=== PATIENT | female | born 1965 | race Caucasian/White ===

== ENCOUNTER 2021-03-27 07:36 | Day surgery (SDC) | payer BC ==
[~2021-03-27 07:36] MED LIST: Midazolam 1 MG/ML 2 ML SDV ONE; Propofol 200 MG/20 ML SDV ONE; fentaNYL 100 MCG/2 ML SDV ONE
[2021-03-27] MEDS ORDERED: Dextrose 5%-Lactated Ringers 1,000 ML IV SCH (08:15)
[2021-03-27] MEDS ORDERED: Glycopyrrolate 0.2 MG/ML 2 ML SDV IVPUSH ONE (09:00)
--- NOTE | 2021-04-13 11:16 | OR ---
DATE OF PROCEDURE: 03/27/2021 SURGEON: Constantine Thornton MD PREOPERATIVE DIAGNOSIS: Persistent gastroesophageal reflux disease. POSTOPERATIVE DIAGNOSES: 1. Moderate hiatal hernia with wide-open esophagogastric junction and actively ulcerated esophagitis. 2. Multiple fundic gland polyps. OPERATIVE PROCEDURES: Esophagogastroduodenoscopy with: 1. Biopsy of esophagogastric junction (19452). 2. Fundic gland polypectomy by snare technique (64948). 3. Biopsies of antrum for CLOtest. ANESTHESIA: IV sedation. INDICATIONS FOR PROCEDURE: This is a 56-year-old presenting with worsening symptoms suggestive of gastroesophageal reflux disease. Plan is to proceed with an upper GI endoscopy with biopsies as indicated. Potential risks including bleeding and perforation were discussed, and the patient wishes to proceed. DETAILS OF PROCEDURE: The patient was taken to the operating room and placed in a left lateral decubitus position. IV sedation was administered, after which the upper GI endoscope was passed orally through the length of esophagus into the stomach with retroflexion view of the fundus, and thereafter through the pyloric channel to the junction of the third and fourth portions of the duodenum. Findings included some mild redness and erythema of the hypopharynx and larynx. Upper esophageal sphincter and esophageal body were unremarkable. The patient did have a moderate roughly 3 cm to 4 cm hiatal hernia with completely wide open esophagogastric junction. There was actively ulcerated esophagitis extending upward from the EG junction. The central area of the ulcer was covered with fibrinous exudate. No blood or bleeding was seen. There was no stricturing, plaquing, or gross evidence of neoplasia. The patient was noted to have multiple fundic gland polyps, none of which appeared to be particularly worrisome in appearance. Remainder of the antrum and duodenal exams were unremarkable. At this point, biopsies were obtained from the antrum and sent for CLOtest for H pylori. A single gland polypectomy was then accomplished by means of a snare technique, and following this, multiple biopsies were obtained from esophagogastric junction and sent for histologic evaluation. Minimal bleeding from the biopsy and polypectomy sites were seen, and the procedure then concluded. The patient was taken to the recovery room in satisfactory condition. Constantine Thornton MD /[id number]
== END 2021-03-27 12:10 | disposition home or self-care (01) ==
LOC: JP.SDS 07:36
PROVIDERS: ATTEND Surgery
DX: K31.7 Polyp of stomach and duodenum (principal); K22.8 Other specified diseases of esophagus; K21.00 Gastro-esophageal reflux disease with esophagitis, without bleeding; K44.9 Diaphragmatic hernia without obstruction or gangrene; K22.10 Ulcer of esophagus without bleeding; E66.9 Obesity, unspecified; Z68.27 Body mass index [BMI] 27.0-27.9, adult
CPT/HCPCS: 87081; 88305; J2250; J2704; J3010; J3490; J7121

== ENCOUNTER 2021-06-02 05:34 | Inpatient (IN) | payer BC ==
[2021-06-02] MEDS: Acetaminophen 500 MG Tab PO ONE ×2 (06:03→10:11)
[2021-06-02] MEDS ORDERED: Ondansetron 4 MG/2 ML SDV ONE (07:05)
[2021-06-02] MEDS ORDERED: Dexamethasone 4 MG/ML SDV ONE (07:05)
[2021-06-02] MEDS ORDERED: fentaNYL 250 MCG/5 ML SDV ONE (07:05)
[2021-06-02] MEDS ORDERED: Glycopyrrolate 0.2 MG/ML 5 ML MDV ONE (07:05)
[2021-06-02] MEDS ORDERED: Rocuronium 50 MG/5 ML Vial ONE (07:05)
[2021-06-02] MEDS ORDERED: Succinylcholine 200 MG/10 ML MDV ONE (07:05)
[2021-06-02] MEDS ORDERED: Neostigmine Methylsulfate 1 MG/ML 5 ML Syringe ONE (07:05)
[2021-06-02] MEDS ORDERED: Propofol 200 MG/20 ML SDV ONE (07:05)
[2021-06-02] MEDS ORDERED: Ketamine 500 MG/5 ML MDV IV SCH (07:15)
[2021-06-02] MEDS ORDERED: Ketamine 50 MG in Sodium Chloride 0.9% 49.5 ML IV SCH (07:15)
[2021-06-02] MEDS ORDERED: Ropivacaine 34 ML, dexAMETHasone 8 MG, EPINEPHrine 0.4 MG, Sodium Chloride 0.9% 43.6 ML NERVRT SCH ×4 (07:15)
[2021-06-02] MEDS ORDERED: Dextrose 5%-Lactated Ringers 1,000 ML IV SCH ×2 (07:45→10:15)
[2021-06-02] MEDS ORDERED: ceFAZolin 2 GM in Premix Bag 1 BAG IV ONE (07:45)
[2021-06-02] MEDS ORDERED: Sodium Chloride 0.9% 10 ML ONE (07:47)
[2021-06-02] MEDS ORDERED: ePHEDrine 50 MG/ML SDV ONE (07:47)
[2021-06-02] MEDS ORDERED: Lactated Ringers 1,000 ML ONE (08:08)
[2021-06-02] MEDS ORDERED: fentaNYL 100 MCG/2 ML SDV ONE (08:51)
[2021-06-02] MEDS ORDERED: Cyclobenzaprine 10 MG Tab PO PRN (10:10)
[2021-06-02] MEDS: Pantoprazole 40 MG Vial IVPUSH SCH (10:46)
[2021-06-02] MEDS ORDERED: diphenhydrAMINE 50 MG/ML SDV IVPUSH PRN (11:00)
[2021-06-02] MEDS ORDERED: Acetaminophen 500 MG Tab PO PRN (11:00)
[2021-06-02] MEDS ORDERED: hydrOXYzine HCL 100 MG/2 ML SDV IM PRN (11:00)
[2021-06-02] MEDS ORDERED: HYDROmorphone 1 MG/ML Syringe IV PRN (11:00)
[2021-06-02] MEDS ORDERED: Metoclopramide 10 MG/2 ML SDV IVPUSH PRN (11:00)
[2021-06-02] MEDS ORDERED: Labetalol 20 MG/4 ML Syringe IVPUSH PRN (11:00)
[2021-06-02] MEDS ORDERED: HYDROmorphone 0.5 MG/0.5 ML Syringe IVPUSH PRN (11:00)
[2021-06-02] MEDS ORDERED: Ondansetron 4 MG/2 ML SDV IVPUSH PRN (11:00)
[2021-06-02] MEDS ORDERED: oxyCODONE 5 MG Tab PO PRN (11:00)
[2021-06-02] MEDS: ceFAZolin 2 GM in Premix Bag 1 BAG IV SCH ×2 (13:24→21:26)
[2021-06-02] MEDS: Acetaminophen 500 MG Tab PO SCH ×2 (13:24→21:26)
[2021-06-02] MEDS: MVI, Adult with Vitamin K 10 ML, Thiamine 200 MG, Zinc/Copper/Manganese/Selenium 1 ML i... IV SCH ×4 (17:45)
[2021-06-02] MEDS: traMADol 50 MG Tab PO PRN (17:45)
[2021-06-02] MEDS: Fluticasone Propionate Nasal Spray 16 GM Bottle NASBOTH SCH (22:06)
[2021-06-02] MEDS: DULoxetine 20 MG Cap PO SCH (22:06)
[2021-06-03] MEDS ORDERED: Iopamidol 612 MG/ML 50 ML SDV PO ONE (03:06)
[2021-06-03] MEDS ORDERED: methylPREDNISolone Sodium Succinate 40 MG/1 ML SDV IVPUSH ONE (03:30)
[2021-06-03] MEDS: ceFAZolin 2 GM in Premix Bag 1 BAG IV SCH ×3 (05:03→21:18)
[2021-06-03] MEDS: Acetaminophen 500 MG Tab PO SCH ×3 (06:44→21:19)
[2021-06-03] MEDS ORDERED: HYDROmorphone 2 MG Tab PO PRN (07:03)
--- NOTE | 2021-06-03 08:04 | PN ---
DATE OF SERVICE: 06/03/2021 SUBJECTIVE: Kristie is postop day 1 from having a laparoscopic Jese fundoplication. She has had 560 in, 5500 out. Vital signs have been stable, and pain has been well managed. She is up ambulating and has no questions or concerns. REVIEW OF SYSTEMS: Remainder of the review of systems negative for any pertinent positives or negatives. OBJECTIVE: GENERAL: Kristie is a pleasant 56-year-old female. VITAL SIGNS: TPR is 95.9, 63, 16. Blood pressure 103/62. HEENT: Negative. NECK: Supple. HEART: Regular rate and rhythm. LUNGS: Clear. ABDOMEN: Dressings dry and intact. Abdominal binder is on. EXTREMITIES: Without peripheral edema. ASSESSMENT: Laparoscopic repair of paraesophageal diaphragmatic hernia with Jese fundoplication and repair of posterior perforation, distal esophagus. POSTOPERATIVE DIAGNOSES: 1. Large paraesophageal hernia with gastroesophageal reflux disease, refractory to medical management. 2. Contained perforation, distal esophagus. Date of procedure, 06/02/2021. Surgeon: Constantine Thornton MD. PLAN: 1. Clear liquid diet for 5 days. 2. Ensure Clear q.i.d. 3. IV decreased to 100 mL per hour. 4. May shower. 5. Dilaudid 2 mg q.4 hours p.r.n. pain. 6. Continue use of incentive spirometer and ambulation. 7. We will evaluate p.r.n. or in a.m. Adriana Gutierrez PA-C /[id number]
[2021-06-03] MEDS ORDERED: Fluticasone Propionate Nasal Spray 16 GM Bottle NASBOTH SCH (09:00)
[2021-06-03] MEDS ORDERED: DULoxetine 20 MG Cap PO SCH (09:00)
[2021-06-03] MEDS: Cetirizine 10 MG Tab PO SCH (09:16)
[2021-06-03] MEDS: Dextrose 5%-Lactated Ringers 1,000 ML IV SCH (09:17)
--- NOTE | 2021-06-03 09:19 | CR ---
[facility] HISTORY: Postbariatric surgery FINDINGS: Patient swallowed water-soluble contrast. Upright views of the abdomen show no evidence of extravasation or obstruction. IMPRESSION: Status post bariatric surgery No extravasation or obstruction seen
[2021-06-03] MEDS: Pantoprazole 40 MG Vial IVPUSH SCH (11:13)
[2021-06-03] MEDS: traMADol 50 MG Tab PO PRN (15:09)
[2021-06-03] MEDS: MVI, Adult with Vitamin K 10 ML, Thiamine 200 MG, Zinc/Copper/Manganese/Selenium 1 ML i... IV SCH ×4 (16:45)
[2021-06-03] MEDS: Fluticasone Propionate Nasal Spray 16 GM Bottle NASBOTH SCH (21:19)
[2021-06-03] MEDS: DULoxetine 20 MG Cap PO SCH (21:19)
[2021-06-04] MEDS: Dextrose 5%-Lactated Ringers 1,000 ML IV SCH (03:07)
[2021-06-04] MEDS ORDERED: Magnesium Hydroxide 400 MG/5 ML Susp 30 ML Cup PO PRN (07:14)
[2021-06-04] MEDS: Acetaminophen 500 MG Tab PO SCH (08:41)
[2021-06-04] MEDS: Cetirizine 10 MG Tab PO SCH (08:43)
[2021-06-04] MEDS ORDERED: Cyanocobalamin (Vitamin B12) 1,000 MCG/ML SDV IM ONE (09:00)
--- NOTE | 2021-06-06 01:36 | DISCH ---
ADMISSION DIAGNOSES: 1. Large paraesophageal diaphragmatic hernia. 2. Gastroesophageal reflux disease refractory to medical management. DISCHARGE DIAGNOSES: Laparoscopic repair of paraesophageal diaphragmatic hernia with Jese fundoplication and repair of posterior perforation of distal esophagus. POSTOPERATIVE DIAGNOSES: 1. Large paraesophageal hernia with gastroesophageal reflux disease refractory to medical management. 2. Contained perforation in distal esophagus. 3. Date of procedure: 06/02/2021. Surgeon: Constantine Thornton MD. HISTORY: Kristie is a pleasant 56-year-old female with gastroesophageal reflux disease refractory to medical management. After preoperative evaluation and discussion of possible risks and possible complications, she wished to proceed with surgical procedure. HOSPITAL COURSE: Kristie had her surgery on 06/02/2021. She had no operative complications. On postoperative day #1, she was started on clear liquid diet and given Ensure Clear protein supplement drinks 4 times a day. IV was decreased to 100 mL per hour. She continued use of incentive spirometer and ambulation. She was prescribed Dilaudid 2 mg q.4 hours p.r.n. pain. On postoperative day #2, activity was good. Oral intake adequate. She received dietary instructions and will be able to be discharged to home without any complications. PHYSICAL EXAMINATION: GENERAL: Kristie is a pleasant 56-year-old female. VITAL SIGNS: Height is 5 feet 4 inches, weight is 149 pounds. TPR is 96.8, 73, 16, blood pressure is 128/82. HEENT: Negative. NECK: Supple. HEART: Regular rate and rhythm. LUNGS: Clear. ABDOMEN: Dressings are on. Abdominal binder is on. EXTREMITIES: Without peripheral edema. DISPOSITION: Discharged to home. CONDITION: Stable and improving. FOLLOWUP APPOINTMENT: With Constantine Thornton MD, on 06/11/2021 at 8 a.m. MEDICATIONS: She is to resume home medication as she took prior to admission. Two doses of milk of mag were sent home with the patient because she has not had a bowel movement yet. May take Aller-Beto 1 spray nasal daily, duloxetine 40 mg daily, cetirizine/Zyrtec 10 mg p.o. daily, and Tylenol Extra Strength 1000 mg p.o. q.8 hours for pain. Hold vitamins until after first postop appointment. DIET: Clear liquid diet for 5 days, then full liquid diet for 9 days. ACTIVITY: No lifting greater than 10 pounds for 2 weeks. OTHER ACTIVITY: Walk 6 times daily inside your home. Driving: Do not drive for 1 week. Shower/bathing: May shower. Keep operative site clean and dry. DISCHARGE INSTRUCTIONS: Wear abdominal binder for 2 weeks, then as tolerated. Notify provider if any fever, increased pain, swelling, redness, drainage, nausea, vomiting, and use incentive spirometer 10 times every hour while awake. /[id number]
--- NOTE | 2021-06-16 10:13 | OR ---
DATE OF PROCEDURE: 06/02/2021 SURGEON: Constantine Thornton MD PREOPERATIVE DIAGNOSIS: Large hiatal hernia associated with gastroesophageal reflux disease refractory to medical management. POSTOPERATIVE DIAGNOSES: 1. Large paraesophageal diaphragmatic hernia with gastroesophageal reflux disease refractory to medical management. 2. Contained perforation of distal esophagus. OPERATIVE PROCEDURE: Diagnostic laparoscopy with: 1. Jese fundoplication with concurrent repair of large paraesophageal diaphragmatic hernia with mesh (63360). 2. Repair of posterior perforation of distal esophagus (33419). ANESTHESIA: General. CASH POSTER: Adriana Gutierrez PA-C INDICATIONS FOR PROCEDURE: This is a 56-year-old presenting with gastroesophageal reflux disease that is refractory to medical management. After preoperative evaluation and discussion, she wished to proceed with a Jese fundoplication. Potential risks of the procedure including bleeding, infection, injury to underlying viscera, problems with fundoplication such as dysphagia, gas bloat syndrome, disorders of gastric emptying rate, as well as possible incomplete relief of reflux symptoms in either the short and/or long-term were all reviewed, and the patient wishes to proceed. DETAILS OF PROCEDURE: The patient was taken to the operating room, and after general endotracheal anesthesia was induced, the patient was placed in a lithotomy position and the abdomen prepped and draped. 15 cm inferior and 5 cm left of the xiphoid process, a transverse incision was made and peritoneal cavity entered under direct vision with an Optiview trocar, inflated to 15 mmHg pressure with CO2. Bilateral transversus abdominis plane blocks were then placed and the 4 additional trocars were placed across the upper and mid abdomen. At this point, the patient was noted to have a large paraesophageal diaphragmatic hernia. This included a prolapse of the gastric fundus, and some omentum in a plane anterior to the course of the esophagus. The hernia was reduced at this point. The peritoneum overlying incised and reflected downward, and the esophagus then dissected away from the crural attachments laterally and across between those 2 points anteriorly. Further dissection posteriorly showed an area of focal dense scarring. As this was dissected free, the patient was noted to have a contained perforation of the distal esophagus posteriorly. Based on the patient's recent endoscopic findings, this is probably somewhat of a remote injury with the mucosa subsequently having been healed overlying the focal area of the perforation. Once this was further dissected free and a satisfactory intraabdominal esophageal length was established, the distal esophageal perforation was closed off with a single firing of the THOMAS breaux load, and after placement of the absorbable mesh, it was further reinforced with fibrin sealant. At this point, Phasix ST mesh was selected. This was an absorbable mesh which could reasonably be placed in the site of some bacterial contamination. This was cut in a horseshoe type configuration and placed across the crural repair, which at that point had been accomplished with a series of 0 Ethibond sutures reinforced with PTFE pledgets and then affixed to the crura on the right and left sides with titanium tacking screws. At that point then, the upper greater curvature of the stomach was from the upper aspect of the omentum and short gastric vessels including the highest posterior short gastric vessels. This resulted in a very satisfactory appearing mobilized gastric fundus. The latter was then pulled through the retroesophageal window. Once this was in place, fibrin sealant was then placed over the area of esophageal closure site to further reinforce that location. A 3-stitch 2 cm fundoplication was accomplished with 0 Ethibond sutures reinforced with PTFE pledgets. between the fundoplication and the diaphragm around the right and left side were then placed with same stitch pledget combination to prevent the fundoplication as this was sliding down onto the stomach was then placed. At that point, no further problems were noted. The abdomen was irrigated with antibiotic-containing saline solution. A Liam-Harris drain was not felt to be necessary. Trocars were sequentially removed and the peritoneal cavity deflated. Incisions were closed with 4-0 Vicryl skin stitch, and the patient was taken to the recovery room in satisfactory condition. There were no evident complications. Physician speech pathologist assistant, Adriana Gutierrez, played an essential role in assisting in this case, helping to position the patient, retract structures as needed, as well as suturing and cutting sutures when indicated. Her presence improved patient safety and decreased operative time. Constantine Thornton MD /[id number]
== END 2021-06-04 09:36 | disposition home or self-care (01) | DRG 220 ==
LOC: JP.MS 05:34 → JP.SDS 05:34 → EDSTATUS 07:15 → JP.MS 09:20
PROVIDERS: ADMIT Surgery; ATTEND Surgery
PROC: 0DV44ZZ Restriction of Esophagogastric Junction, Percutaneous Endoscopic Approach (ICD-10-PCS; principal; 2021-06-02)
PROC: 0BUT4JZ Supplement Diaphragm with Synthetic Substitute, Percutaneous Endoscopic Approach (ICD-10-PCS; 2021-06-02)
PROC: 0DQ34ZZ Repair Lower Esophagus, Percutaneous Endoscopic Approach (ICD-10-PCS; 2021-06-02)
PROC: 0JB63ZZ Excision of Chest Subcutaneous Tissue and Fascia, Percutaneous Approach (ICD-10-PCS; 2021-06-02)
DX: K21.00 Gastro-esophageal reflux disease with esophagitis, without bleeding (principal); K44.9 Diaphragmatic hernia without obstruction or gangrene; E78.49 Other hyperlipidemia; L40.9 Psoriasis, unspecified; K22.3 Perforation of esophagus; F32.9 Major depressive disorder, single episode, unspecified; Z88.2 Allergy status to sulfonamides; Z79.899 Other long term (current) drug therapy
CPT/HCPCS: 74240; 74240-26; 88305; 94762; A9270-GY; C1713; C1781; C9113; J0171; J0330; J0690; J1100; J2405; J2704; J2710; J2795; J2920; J3010; J3410; J3411; J3420; J3490; J7120; J7121; Q9967

== ENCOUNTER 2023-04-13 07:03 | Day surgery (SDC) | payer BC ==
[2023-04-13] MEDS ORDERED: Dextrose 5%-Lactated Ringers 1,000 ML IV SCH (07:30)
[2023-04-13] MEDS ORDERED: Glycopyrrolate 0.2 MG/ML 2 ML SDV IVPUSH ONE (08:00)
[2023-04-13] MEDS ORDERED: Propofol 200 MG/20 ML SDV ONE (09:37)
[2023-04-13] MEDS ORDERED: Ondansetron 4 MG/2 ML SDV IVPUSH ONE (10:42)
== END 2023-04-13 13:10 | disposition home or self-care (01) ==
LOC: JP.SDS 07:03
PROVIDERS: ATTEND Surgery
DX: Z12.11 Encounter for screening for malignant neoplasm of colon (principal); K21.00 Gastro-esophageal reflux disease with esophagitis, without bleeding; K29.70 Gastritis, unspecified, without bleeding; E78.5 Hyperlipidemia, unspecified; F32.A Depression, unspecified; Z79.899 Other long term (current) drug therapy; Z88.2 Allergy status to sulfonamides; Z91.041 Radiographic dye allergy status
CPT/HCPCS: 43239; 45378; 87081; 88305; J2250; J2405; J2704; J3010; J3490; J7121